=== PATIENT | male | born 1965 | race Caucasian/White ===

== ENCOUNTER 2021-05-22 10:21 | Emergency (ER) | payer BC ==
[2021-05-22] MEDS ORDERED: Sodium Chloride 0.9% 10 ML Syringe FLUSH PRN (11:31)
[2021-05-22] MEDS ORDERED: fentaNYL 100 MCG/2 ML SDV IVPUSH ONE (11:31)
[2021-05-22] MEDS ORDERED: Metoclopramide 10 MG/2 ML SDV IVPUSH ONE (11:31)
--- NOTE | 2021-05-22 11:32 | EDM.PDOC ---
ED HPI GENERAL MEDICAL PROBLEM - General Chief Complaint: Abdominal Pain Stated Complaint: PAIN IN R SIDE, CONSIPATED Time Seen by Provider: 05/22/21 11:30 Source of Information: Reports: Patient, RN History Limitations: Reports: Other (Poor historian, difficult to follow conversation and reported concerns ) - History of Present Illness INITIAL COMMENTS - FREE TEXT/NARRATIVE: Wang is a 56 year old male whom presents to ER for right lower abdomen/groin pain which started yesterday with pressure right upper abdomen and decreased appetite. Wang tried to lay around the house with minimal activity but today pain become worsen with right groin pain which radiates to right groin/site of previous hernia surgery. Wang has no history of kidney stones or similar pain in the past. Wang initially thought pain was related to constipation, normal BM every other day, last BM was 2 days ago with attempt to take usual Senokot but no results this am per usual. Wang has a history of previous appendix removal. After further questioning and repeat abdominal exam verifying normal right inguinal area without bulging or abdominal wall pain in the area. Wang reports "tingler" the last few times when he urinated, clarification as slight burning with urination reported. - Related Data Allergies Allergy/AdvReac Type Severity Reaction Status Date / Time No Known Allergies Allergy Verified 05/22/21 11:18 Home Meds: Home Meds Naproxen 500 mg PO BID PRN 5 Days #20 tablet 05/22/21 [Rx] Tamsulosin HCl [Flomax] 0.4 mg PO BEDTIME 10 Days #10 cap.er.24h 05/22/21 [Rx] Past Medical History - Past Surgical History GI Surgical History: Reports: Appendectomy, Hernia, Inguinal Social & Family History - Tobacco Use Tobacco Use Status *Q: Current Every Day Tobacco User Years of Tobacco use: 35 Packs/Tins Daily: 1 ED ROS GENERAL - Review of Systems Review Of Systems: Comprehensive ROS is negative, except as noted in HPI. ED EXAM, GI/ABD - Physical Exam Exam: See Below General Appearance: Alert, WD/WN, Moderate Distress (abdomina/right groin discomfort) Eyes: Bilateral: Normal Appearance Ears: Hearing Grossly Normal Nose: Normal Inspection Throat/Mouth: Normal Inspection, Normal Voice, No Airway Compromise Neck: Normal Inspection, Full Range of Motion Respiratory/Chest: No Respiratory Distress, Normal Breath Sounds Cardiovascular: Normal Peripheral Pulses, Regular Rate, Rhythm GI/Abdominal Exam: Tender (right mid and lower abdomen mostly in right groin/pelvic area. ) (Male) Exam: No Hernia, Normal Inspection. No: Scrotal Swelling, Scrotum Tenderness (R), Testicular Mass, Testicular Tenderness (R) Back Exam: Normal Inspection, CVA Tenderness (R). No: CVA Tenderness (L) Extremities: Normal Inspection, Normal Range of Motion, Non-Tender Neurological: Alert, Oriented, CN II-XII Intact, Normal Cognition, Normal Gait Psychiatric: Normal Affect, Normal Mood Skin Exam: Warm, Dry, Intact, Normal Color, No Rash Course - Vital Signs Last Recorded V/S: Last Vital Signs Temp 36.2 C 05/22/21 11:24 Pulse 54 L 05/22/21 11:24 Resp 14 05/22/21 11:24 BP 163/95 H 05/22/21 11:24 Pulse Ox 96 05/22/21 11:24 - Orders/Labs/Meds Orders: Active Orders 24 hr Category Date Time Status Cardiac Monitoring [RC] .As Directed Care 05/22/21 11:31 Active Peripheral IV Care [RC] . DIRECTED Care 05/22/21 11:31 Active UA W/MICROSCOPIC [URIN] Stat Lab 05/22/21 11:31 Ordered Ketorolac [Toradol] Med 05/22/21 13:53 Once 30 mg IVPUSH ONETIME ONE Sodium Chloride 0.9% [Normal Saline] 1,000 ml Med 05/22/21 14:00 Ordered IV ASDIRECTED Sodium Chloride 0.9% [Saline Flush] Med 05/22/21 11:31 Active 10 ml FLUSH ASDIRECTED PRN Tamsulosin [Flomax] Med 05/22/21 13:53 Once 0.4 mg PO ONETIME ONE Peripheral IV Insertion Adult [OM.PC] Urgent Oth 05/22/21 11:31 Ordered Medication Orders Sodium Chloride (Normal Saline) 1,000 mls @ 500 mls/hr IV ASDIRECTED NADINE Ketorolac Tromethamine (Ketorolac 30 Mg/Ml Sdv) 30 mg IVPUSH ONETIME ONE Stop: 05/22/21 13:54 Sodium Chloride (Sodium Chloride 0.9% 10 Ml Syringe) 10 ml FLUSH ASDIRECTED PRN PRN Reason: Keep Vein Open Last Admin: 05/22/21 12:13 Dose: 10 ml Documented by: IRMA Labs: Laboratory Tests 05/22/21 05/22/21 Range/Units 11:40 11:40 WBC 16.8 H (4.5-11.0) K/uL RBC 5.06 (4.30-5.90) M/uL Hgb 15.4 H (12.0-15.0) g/dL Hct 44.1 (40.0-54.0) % MCV 87 (80-98) fL MCH 30 (27-31) pg MCHC 35 (32-36) % Plt Count 376 (150-400) K/uL Neut % (Auto) 85.7 H (36-66) % Lymph % (Auto) 5.9 L (24-44) % [place] % (Auto) 8.1 H (2-6) % Eos % (Auto) 0.2 L (2-4) % Baso % (Auto) 0.1 (0-1) % Sodium 139 L (140-148) mmol/L Potassium 3.7 (3.6-5.2) mmol/L Chloride 101 (100-108) mmol/L Carbon Dioxide 25 (21-32) mmol/L Anion Gap 16.7 H (5.0-14.0) mmol/L BUN 9 (7-18) mg/dL Creatinine 1.0 (0.8-1.3) mg/dL Est Cr Clr Drug Dosing 84.45 mL/min Estimated GFR (MDRD) > 60 (>60) Glucose 93 (74-106) mg/dL Calcium 9.2 (8.5-10.1) mg/dL Total Bilirubin 0.5 (0.2-1.0) mg/dL AST 29 (15-37) U/L ALT 39 (12-78) U/L Alkaline Phosphatase 90 (46-116) U/L Total Protein 7.2 (6.4-8.2) g/dL Albumin 4.1 (3.4-5.0) g/dL Globulin 3.1 (2.3-3.5) g/dL Albumin/Globulin Ratio 1.3 (1.2-2.2) Meds: Medications Generic Name Dose Route Start Last Admin Trade Name Freq PRN Reason Stop Dose Admin Sodium Chloride 1,000 mls @ 500 mls/hr 05/22/21 14:00 Normal Saline IV ASDIRECTED NADINE Ketorolac Tromethamine 30 mg 05/22/21 13:53 Ketorolac 30 Mg/Ml Sdv IVPUSH 05/22/21 13:54 ONETIME ONE Sodium Chloride 10 ml 05/22/21 11:31 05/22/21 12:13 Sodium Chloride 0.9% 10 Ml Syringe FLUSH 10 ml ASDIRECTED PRN Administration Keep Vein Open Discontinued Medications Generic Name Dose Route Start Last Admin Trade Name Flores PRN Reason Stop Dose Admin Fentanyl 50 mcg 05/22/21 11:31 05/22/21 12:12 Fentanyl 100 Mcg/2 Ml Sdv IVPUSH 05/22/21 11:32 50 mcg ONETIME ONE Administration Metoclopramide HCl 5 mg 05/22/21 11:31 05/22/21 12:12 Metoclopramide 10 Mg/2 Ml Sdv IVPUSH 05/22/21 11:32 5 mg ONETIME ONE Administration - Re-Assessments/Exams Free Text/Narrative Re-Assessment/Exam: Wang's pain was much improved shortly after returning from CT with increased urinary symptoms and abrupt resolution of pain. CT results reported as 3mm stone at the right UVJ jsut before the bladder with moderate hydroureter and hydronephrosis on the right side. Consistent with kidney stone with obstructions, clinical resolution. Recommended Toradol 30mg IV with Naproxen every 12 hours x 5 days and Flomax 0.4 mg every night x 10 days to prevent ureteral spasms and flank pain due to recent passage of kidney stone, no additional stones reported. 05/22/21 13:58 Departure - Departure Time of Disposition: 14:10 Disposition: Home, Self-Care 01 Clinical Impression: Ureteral stone with hydronephrosis, Flank pain - Discharge Information Prescriptions: Tamsulosin HCl [Flomax] 0.4 mg PO BEDTIME 10 Days #10 cap.er.24h Naproxen 500 mg PO BID PRN 5 Days #20 tablet PRN Reason: Pain Instructions: Hydronephrosis, Flank Pain, Adult Referrals: PCP,None [Primary Care Provider] - Forms: ED Department Discharge Additional Instructions: 1. Increased fluid intake over the next 24-48 hours to flush kidneys to ensure not secondary stone or infection due to passage of stone. 2. Flomax 0.4mg every night x 10 days to help with ureteral spasms and pain due to recent passage of stone. 3. Naproxen 500mg every am and pm x 5 days for flank and ureteral pain due to recent passage of stone. 4. Strain urine, If you catch a stone, call your PCP clinic to bring stone of analysis. If you do not catch stone, disregard. 5. Return to ER if increased urinary symptoms, fever worsening pain or new co ncerns. 6. Urine test is pending, if returns positive treatment for a urinary tract infection may be necessary. Sepsis Event Note (ED) - Evaluation Sepsis Screening Result: No Definite Risk - Focused Exam Vital Signs: Vital Signs Temp Pulse Resp BP Pulse Ox 05/22/21 11:24 36.2 C 54 L 14 163/95 H 96 - My Orders Last 24 Hours: My Active Orders 05/22/21 11:31 Cardiac Monitoring [RC] .As Directed Peripheral IV Care [RC] . DIRECTED UA W/MICROSCOPIC [URIN] Stat Sodium Chloride 0.9% [Saline Flush] 10 ml FLUSH ASDIRECTED PRN Peripheral IV Insertion Adult [OM.PC] Urgent 05/22/21 13:53 Ketorolac [Toradol] 30 mg IVPUSH ONETIME ONE Tamsulosin [Flomax] 0.4 mg PO ONETIME ONE 05/22/21 14:00 Sodium Chloride 0.9% [Normal Saline] 1,000 ml IV ASDIRECTED - Assessment/Plan Last 24 Hours: My Active Orders 05/22/21 11:31 Cardiac Monitoring [RC] .As Directed Peripheral IV Care [RC] . DIRECTED UA W/MICROSCOPIC [URIN] Stat Sodium Chloride 0.9% [Saline Flush] 10 ml FLUSH ASDIRECTED PRN Peripheral IV Insertion Adult [OM.PC] Urgent 05/22/21 13:53 Ketorolac [Toradol] 30 mg IVPUSH ONETIME ONE Tamsulosin [Flomax] 0.4 mg PO ONETIME ONE 05/22/21 14:00 Sodium Chloride 0.9% [Normal Saline] 1,000 ml IV ASDIRECTED
--- NOTE | 2021-05-22 13:25 | CRLCT ---
For Patients: As a result of the Century Cures Act, medical imaging exams and procedure reports are released immediately into your electronic medical record. You may view this report before your referring provider. If you have questions, please contact your health care provider. INDICATION: Right groin pain. TECHNIQUE: CT of the abdomen and pelvis without intravenous contrast. Coronal and sagittal reconstructions. COMPARISON: None. FINDINGS: Calcified granuloma in the posterior right hepatic lobe. The unenhanced liver is otherwise unremarkable. The unenhanced gallbladder, spleen, pancreas, and adrenal glands are normal in appearance. There is a 3 mm stone in the right posterior bladder which may be within the tip of the ureterovesicular junction (series 2, image 177). Moderate right hydroureteronephrosis and prominent perinephric fat stranding. No other urinary calculi identified. No left hydronephrosis or ureteral dilation. Underdistended urinary bladder with diffuse wall thickening. The prostate gland is unremarkable. No bowel dilation. Appendectomy. No intraperitoneal free air or fluid. Prior right inguinal hernia repair. No evidence of a recurrent hernia. No other abnormality in the right groin. Tiny fat containing umbilical hernia. Mild vascular calcifications. No lymphadenopathy. Degenerative changes of the hips. Focal atelectasis or scarring in the medial right lower lobe. The lung bases are otherwise clear. IMPRESSION: 3 mm stone in the right posterior bladder which may be within the tip of the right UVJ. Moderate upstream right hydroureteronephrosis and prominent perinephric fat stranding. Please note that all CT scans at this facility use dose modulation, iterative reconstruction, and/or weight-based dosing when appropriate to reduce radiation dose to as low as reasonably achievable. Dictated by Callie Little MD @ 05/22/2021 1:24:[address] Callie Little @ May 22 2021 1:24PM
[2021-05-22] MEDS ORDERED: Tamsulosin 0.4 MG Cap.ER PO ONE (13:53)
[2021-05-22] MEDS ORDERED: Ketorolac 30 MG/ML SDV IVPUSH ONE (13:53)
[2021-05-22] MEDS ORDERED: Sodium Chloride 0.9% 1,000 ML IV SCH (14:00)
== END 2021-05-22 14:26 | disposition home or self-care (01) ==
LOC: JP.ED 10:21
DX: N13.2 Hydronephrosis with renal and ureteral calculous obstruction (principal); Z90.49 Acquired absence of other specified parts of digestive tract; Z72.0 Tobacco use
CPT/HCPCS: 36415; 74176; 80053; 81001; 85025; 96374; 96375; 99284; A9270; J1885; J2765; J3010